=== PATIENT | male | born 1985 | race Caucasian/White ===

== ENCOUNTER 2018-12-14 22:11 | Emergency (ER) | payer MEDICARE, SELFPAY ==
[2018-12-14 22:13] VITALS: BP 96/66; PULSE 154; RESP 24; TEMP 36.7; O2SAT 93; BMI 32.9
--- NOTE | 2018-12-14 22:17 | ED.RN ---
SEPSIS ALERT INITIATED AND GREEN PAPER SENT BACK WITH PATIENT.
--- NOTE | 2018-12-14 22:38 | CT_ITS ---
HISTORY: RT SIDED ABDOMEN PAIN,FEVER AND VOMITING SINCE THIS AMHX:DOWN'S SYNDROME TECHNIQUE: Helically acquired images were obtained of the abdomen and pelvis following IV contrast. A radiation dose optimization technique was used for this scan. IV Contrast dosage and agent: 100 cc Isovue-300 contrast Oral contrast: None. 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 No pleural effusion. Mild fatty infiltration of the liver. Normal liver size. Normal spleen, pancreas, gallbladder, and biliary system. Bilateral renal excretion of contrast without evidence of hydronephrosis, pyelonephritis, or suspicious renal lesion. Adrenal glands are not enlarged. Normal abdominal aorta and IVC. No ascites or retroperitoneal lymph node enlargement. GI tract: No obstruction. Normal appendix. Moderate stool within the rectal ampulla. Pelvis: The urinary bladder is not over distended. No free fluid or lymph node enlargement. Bones: No acute osseous abnormality. Ventral abdominal wall: Umbilical and periumbilical small fat-containing hernias. CT/Abdomen/Pelvis W IV Cont ONLY IMPRESSION: 1. Normal appendix. No acute abdominal disease identified. 2. Chronic changes. Details above. Individualized dose optimization techniques were used for this CT. at 0024 Reported and signed by: Chencho Carreon MD Electronically Signed: Chencho Carreon, at 0:23 EDT Tel , Service support ,
--- NOTE | 2018-12-14 22:42 | ED.DCSUM_ITS ---
- ER Visit Summary Date of Service: 12/14/18 Chief Complaint: Nausea, vomiting, diarrhea and fever History of Present Illness: The patient is a 33 M this morning around 530 had diffuse crampy abdominal pain that began having nausea, vomiting and diarrhea. The diarrhea is seen to let up but he still having nausea and vomiting. He is also had a fever as high as 102. No cough. No shortness of breath. No abdominal trauma. No dysuria. Physical Examination: Male accompanied by his parents. Initial blood pressure 96/66. Temperature 91. Heart rate 154. Clinically looks dehydrated. HEENT exam normocephalic atraumatic. He has had dry mucous membranes. Neck nontender no lymphadenopathy no meningismus. Lungs clear to auscultation bilaterally. Heart tachycardic no murmur. Abdomen soft. Mildly but diffusely tender. No peritoneal signs. He has mild tenderness in the right lower quadrant. No rebound, guarding or rigidity. Nondistended. No signs of obstruction. No Christie sign. Positive bowel sounds. Soft. Patient is moving all 4 extremities. Neurovascular intact. Back is nontender. Neurologically is awake and alert with no focal motor deficits. Test Results: [] Emergency Department Course and Treatment: Clinically this patient has a viral gastroenteritis. I also think he is dehydrated. He will receive IV fluids. Zofran for nausea. Family is concerned he has a appendicitis wheezing is much less likely screening labs and a CT will be obtained. Treatment Plan: [] Disposition: Discharge Impression: Acute nausea, vomiting, diarrhea, abdominal pain and fever secondary to viral gastroenteritis Dehydration This note was generated with [employer] dictation software. It may contain incorrect words, spelling, and punctuation that were not noted in review of the chart prior to signing ED Disposition - Plan for ED Patient: Referrals: Hossein Martin MD [Primary Care Provider] -
[2018-12-14] MEDS: Ketorolac 30 MG/ML Syringe IV (22:48)
[2018-12-14] MEDS: Ondansetron 4 MG/2 ML Vial IV (22:48)
[2018-12-14] MEDS: 0.9% Normal Saline 1,000 ML 1000 ML IV (22:48)
--- NOTE | 2018-12-14 22:52 | ED.DEP ---
ED Disposition - Plan for ED Patient: Disposition: Home or Assisted Living Instructions: ED Gastroenteritis Viral Prescriptions: Ondansetron [Zofran Odt] 4 mg PO Q8H PRN PRN #10 tab PRN Reason: Nausea Referrals: Hossein Martin MD [Primary Care Provider] - 3-5 Days if not improving Additional Instructions: Fluids and rest. Plenty of water, Gatorade and 7-Up. Tylenol as needed for fever. Zofran as needed for nausea. Return to the ER if unable to keep fluids down or feeling worse.
[2018-12-14 23:10] LABS: Absolute Lymphocyte Count 1.63 X10^3/ul (0.83-4.51); Absolute Neutrophil Count 8.2 X10^3/uL (2.0-7.7); Basophil# 0.02 X10^3/uL; Basophil% 0.2 % (0-1); Hematocrit 44.4 % (40-54); Hemoglobin 15.6 g/dl (13.0-16.5); Lymphocyte # 1.63 X10^3/ul (4.0); Lymphocyte % 15.1 % (19-41); Mean Corp Hgb Conc 35.1 g/gl (32-36); Mean Corpuscular Hgb 33.8 pg (27.0-32.0); Mean Corpuscular Volume 96.3 fL (80-94); Mean Platelet Vol. 9.1 fl (6.2-12.0); Monocyte# 0.94 X10^3/uL; Monocyte% 8.7 % (0-10); Neutrophil # 8.18 X10^3/uL (2.7-7.7); Neutrophil % 75.8 % (47-70); POSITIVE COUNT NO; POSITIVE DIFFERENTIAL NO; POSITIVE MORPHOLOGY NO; Platelet Count 361 K/mm3 (150-450); RBC Distribution Width CV 12.7 % (11.6-14.6); RBC Distribution Width SD 43.7 fl (35.1-43.9); Red Blood Count 4.61 M/mm3 (4.6-6.2); White Blood Count 10.8 K/mm3 (4.4-11.0)
[2018-12-14 23:12] LABS: AST(SGOT) 22 U/L (15-37); Alanine Aminotransfer ALT/SGPT 30 U/L (16-61); Albumin, Serum 3.5 g/dL (3.2-5.0); Alkaline Phosphatase 87 U/L (45-117); Anion Gap 8 (5-15); BUN 16 mg/dL (7-18); BUN/Creat Ratio 13.9 RATIO (10-20); Bilirubin, Direct 0.15 mg/dL (0.00-0.30); Calcium,Total 8.5 mg/dL (8.5-10.1); Chloride 108 mmol/L (98-107); Creatinine, Serum 1.15 mg/dL (0.70-1.30); EST Glomerular Filtration Rate 78 mL/min (>60); Est Glom Filt Rate - Afr Amer 94 mL/min (>60); Glucose 133 mg/dL (74-106); Lipase 105 U/L (73-393); Potassium 3.5 mmol/L (3.5-5.1); Protein, Total 7.5 g/dL (6.4-8.2); Sodium Level 138 mmol/L (136-145)
[2018-12-15 00:52] VITALS: BP 112/66; PULSE 128; RESP 21; TEMP 36.6
[2018-12-15] MEDS: Ondansetron ODT 4 MG Tablet PO (01:03)
[2018-12-15 01:09] VITALS: BP 107/65; PULSE 121; RESP 18; TEMP 36.7; O2SAT 97
== END 2018-12-15 01:11 | disposition home or self-care (01) ==
PROVIDERS: Emergency Provider Emergency Medicine; Family Provider Family Medicine; PCP Family Medicine
DX: A08.4 Viral intestinal infection, unspecified (principal); E86.0 Dehydration; M10.9 Gout, unspecified
CPT/HCPCS: 74177; 80048; 80076; 83690; 85025; 96361; 96374; 96375; 99283; J7030; Q9967; J2405